=== PATIENT | female | born 1945 | race Caucasian/White ===

== ENCOUNTER 2017-02-13 06:27 | Day surgery (SDC) | payer MEDICARE ==
[2017-02-12 10:34] VITALS: BMI 25.7
[~2017-02-13 06:27] MED LIST: ALPRAZolam 0.25 MG TAB PO PRN; ALPRAZolam 0.5 MG TAB PO PRN; ASPIRIN 325 MG TAB PO STA; ATORVASTATIN 80 MG TAB PO STA; NITROGLYCERIN SL TABS 0.4 MG TAB SUBLINGUAL PRN; SODIUM CHLORIDE 0.9% 1,000 ML in EMPTY BAG 1 BAG IV ONE
[2017-02-13 07:04] VITALS: TEMP 97.9
[2017-02-13] MEDS ORDERED: MIDAZOLAM 2 MG/2 ML VIAL IVP ONE (07:40)
[2017-02-13] MEDS ORDERED: LIDOCAINE 2% INJ 20 MG/ML SQ ONE (07:41)
[2017-02-13] MEDS ORDERED: IOHEXOL 350 MG/ML 125ML BOTTLE INJ ONE (07:52)
[2017-02-13] MEDS ORDERED: RX INFO: IV CONTRAST WAS GIVEN 1 EACH MISC MISCELLANE PRN (07:58)
[2017-02-13] MEDS ORDERED: SODIUM CHLORIDE 0.9% 1,000 ML IV SCH (08:00)
[2017-02-13 08:25] VITALS: RESP 16
--- NOTE | 2017-02-13 09:25 | CC ---
CARDIAC CATHETERIZATION REPORT INDICATION: Unstable angina. PROCEDURE NOTE: After obtaining informed consent, left heart catheterization and coronary angiogram were performed via the right femoral artery using standard [place] catheters. The patient tolerated the procedure well without any obvious immediate complications. Moderate conscious sedation was used. Total sedation time was 18 minutes. FINDINGS: 1. HEMODYNAMICS: Left ventricular end-diastolic pressure is 18 mm. There is no significant gradient across the aortic valve. 2. LEFT VENTRICULOGRAM: Left ventriculogram is not performed. 3. ANGIOGRAPHIC DATA:. 4. Left main coronary artery; left main coronary artery is a normal-sized vessel and is free of stenosis. Divides into left anterior descending coronary artery, ramus intermedius and circumflex coronary artery. LAD and its branches are free of significant stenosis. The ramus intermedius shows some mild atherosclerotic plaque in its proximal portion. Circumflex coronary artery is free of disease. Right coronary artery is a large dominant vessel with mild nonobstructive disease involving the PLV branch. CONCLUSIONS: 1. Mild nonobstructive coronary artery disease. 2. Patient had a femoral angiogram and underwent Angio-Seal. 3. Patient's management is going to be with optimal medical therapy and risk factor modification. MMODL / IJN: [id number] /
[2017-02-13 12:58] VITALS: BP 151/63; PULSE 69
== END 2017-02-13 12:58 | disposition home or self-care (01) ==
LOC: CATHCVL 06:27
PROVIDERS: ATTEND Internal Medicine Cardiovascular Disease
DX: I25.110 Atherosclerotic heart disease of native coronary artery with unstable angina pectoris (principal); E78.2 Mixed hyperlipidemia; Z82.49 Family history of ischemic heart disease and other diseases of the circulatory system; Z79.899 Other long term (current) drug therapy; Z87.891 Personal history of nicotine dependence; Z79.82 Long term (current) use of aspirin
CPT/HCPCS: 93458; C1760; C1894; C1769; J2001; J2250; Q9967